=== PATIENT | female | born 2000 | race Caucasian/White ===

== ENCOUNTER 2021-09-23 01:56 | Emergency (ER) | payer SELFPAY ==
[2021-09-23 01:59] VITALS: BP 161/105; PULSE 107; RESP 18; TEMP 36.7; O2SAT 100
[2021-09-23 02:35] VITALS: BP 146/94; PULSE 79; TEMP 36.4; O2SAT 100
--- NOTE | 2021-09-23 04:40 | PC.NURSE ---
pt called to initiate orders in waiting room. No answer.
== END 2021-09-23 03:50 | disposition left against medical advice (07) ==
LOC: ANHED 05:16
DX: Z53.21 Procedure and treatment not carried out due to patient leaving prior to being seen by health care provider (principal)
CPT/HCPCS: 99199

== ENCOUNTER 2021-11-04 13:23 | Emergency (ER) | payer BC, SELFPAY ==
--- NOTE | ~2021-11-04 | CT_ITS ---
EXAMINATION: CT brain wo con DATE: 11/04/2021 14:39 INDICATION: Headache and altered mental status . TECHNIQUE: Computed tomography (CT) of the head was performed without intravenous contrast. The mA wa s adjusted according to patient size. Iterative reconstruction technique was employed. The dose-lengt h product was 605.33 mGy-cm. COMPARISON: None FINDINGS: No acute intracranial hemorrhage or extra-axial fluid collection. No hydrocephalus, mass, or herniation. No acute ischemic infarct. Unremarkable dural venous sinus attenuation. No acute osseous abnormality. The aerated spaces are clear. IMPRESSION: No acute intracranial process. Reviewed, dictated and finalized at location K.
[2021-11-04 13:55] VITALS: BP 153/108; PULSE 93; RESP 20; TEMP 36.7; O2SAT 98
--- NOTE | 2021-11-04 14:24 | ED.GENADULT ---
HPI - General Adult General Chief complaint: Unspecified Stated complaint: wanting to be seen for disorientation Time Seen by Provider: 11/04/21 14:06 History of Present Illness HPI narrative: This is a 21-year-old this is a 21-year-old female with past medical history of anxiety, presenting the emergency department with intermittent feelings of confusion and amnesia. These events are random, lasting several minutes at a time, associated with confusion about ongoing activities around the patient. She also complains of intermittent headaches for the past week as well as intermittent episodes of lightheadedness over the past month. He denies associated weakness, numbness, loss of vision, ringing in the ears or loss of hearing. Review of Systems Review of Systems: CONSTITUTIONAL: Denies fever, chills, or sweats. EYES: Denies visual changes, redness, or discharge. ENT: Denies rhinorrhea, congestion, sore throat, or otalgia. CARDIOVASCULAR: Denies chest pain, palpitations, or edema. RESPIRATORY: Denies cough or dyspnea. GASTROINTESTINAL: Denies abdominal pain, nausea, vomiting, or diarrhea. GENITOURINARY: Denies dysuria or hematuria. SKIN: Denies rash or itching. MUSCULOSKELETAL: Denies back pain, joint pain, or myalgia. NEUROLOGIC: +headache, dizziness, Denies numbness, or weakness. PSYCHIATRIC: Denies anxiety or depression. Exam Narrative: GENERAL: Well-appearing, well-nourished, and in no acute distress. HEAD: Normocephalic, atraumatic. EYES: PERRLA and EOMI. ENT: Nares clear, no rhinorrhea or epistaxis. Mucous membranes moist. Oropharynx without tonsillar hypertrophy exudate or other lesions. NECK: Supple. No adenopathy or masses. No carotid bruits or JVD CHEST: Clear to auscultation. No respiratory distress. No wheezes rales or rhonchi HEART: Regular rate and rhythm. No murmur heard. Normal peripheral pulses. ABDOMEN: Soft, nontender, nondistended, normal active bowel sounds. EXTREMITIES: Normal range of motion. No edema. SKIN: Warm, dry, no rash. NEURO: No focal deficits. Alert and oriented x3. PSYCH: Normal mood and affect. Course Course Emergency Course: CT head unremarkable. CBC, CMP, TSH unremarkable. test negative. Discussed findings with the patient and recommendation for follow-up with her primary care doctor. Discussed return emergency precautions including signs/symptoms of stroke and sepsis. Patient voiced understanding and was comfortable with the plan. All questions answered to her satisfaction. Vital Signs Vital signs: Vital Signs Temperature 98.1 F 11/04/21 13:55 Pulse Rate 93 11/04/21 13:55 Respiratory Rate 20 11/04/21 13:55 Blood Pressure 153/108 H 11/04/21 13:55 Pulse Oximetry 98 11/04/21 13:55 Oxygen Delivery Room Air 11/04/21 13:55 Temperature 98.1 F 11/04/21 13:55 Pulse Rate 93 11/04/21 13:55 Respiratory Rate 20 11/04/21 13:55 Blood Pressure 153/108 H 11/04/21 13:55 Pulse Oximetry 98 11/04/21 13:55 Oxygen Delivery Room Air 11/04/21 13:55 Medical Decision Making MDM Narrative Medical decision making narrative: Plan: Labs, imaging, reassess Differential Diagnosis Differential Diagnosis: Intracranial mass, metabolic abnormality, medication side effect, , other Vital Signs Vital Signs: Vital Signs Temperature 98.1 F 11/04/21 13:55 Pulse Rate 93 11/04/21 13:55 Respiratory Rate 20 11/04/21 13:55 Blood Pressure 153/108 H 11/04/21 13:55 Pulse Oximetry 98 11/04/21 13:55 Oxygen Delivery Room Air 11/04/21 13:55 Temperature 98.1 F 11/04/21 13:55 Pulse Rate 93 11/04/21 13:55 Respiratory Rate 20 11/04/21 13:55 Blood Pressure 153/108 H 11/04/21 13:55 Pulse Oximetry 98 11/04/21 13:55 Oxygen Delivery Room Air 11/04/21 13:55 Lab Data Result diagrams: 11/04/21 16:00 11/04/21 16:00 Labs: Lab Results 11/04/21 11/04/21 Range/Units 16:00 16:00 WBC 10.2 H
[2021-11-04 16:11] LABS: Basophils Percent Auto 0.3 % (0.2-1.2); Eosinophils Absolute Auto 0.1 K/mm3 (0-0.3); Eosinophils Percent Auto 0.6 % (0-4.4); Hematocrit 39.6 % (37.0-47.0); Hemoglobin 12.3 g/dL (12.0-15.0); Immature Granulocyte Absolute 0.05 K/mm3 (0.00-0.031); Immature Granulocyte Percent A 0.5 % (0-0.5); Lymphocytes Absolute Auto 2.94 K/mm3 (0.9-3.2); Lymphocytes Percent Auto 28.7 % (18.3-44.2); Mean Corpuscular HGB Conc 31.1 g/dl (32-36); Mean Corpuscular Hemoglobin 26.5 pg (26-34); Mean Corpuscular Volume 85.2 fl (80-100); Mean Platelet Volume 10.3 fl (7.4-10.4); Monocytes Absolute Auto 0.6 K/mm3 (0.1-0.6); Monocytes Percent Auto 5.8 % (2.6-8.5); Neutrophils Absolute Auto 6.6 K/mm3 (1.3-6.7); Neutrophils Percent Auto 64.1 % (45.5-73.1); Platelet Count Result 292 k/mm3 (150-375); Red Blood Count 4.65 M/mm3 (4.2-5.4); Red Cell Distribution Width 14.6 % (11.5-14.5); White Blood Count 10.2 K/mm3 (4.5-10.0)
[2021-11-04 16:16] LABS: Alanine Aminotransferase 18 U/L (6-35); Albumin Level 4.2 g/dL (3.5-5.1); Alkaline Phosphatase 84 U/L (38-126); Anion Gap 6 mmol/L (8-16); Aspartate Amino Transferase 21 U/L (14-36); Bilirubin,Total 0.4 mg/dL (0.2-1.3); Blood Urea Nitrogen 10 mg/dL (7-17); Carbon Dioxide 27 mmol/L (22-30); Chloride 104 mmol/L (98-107); Estimated CRCL calculation 161 ml/min; Estimated Glomerular Filt Rate > 60; Glucose 100 mg/dL (65-110); Potassium 3.9 mmol/L (3.4-5.0); Sodium 137 mmol/L (137-145)
[2021-11-04 17:35] VITALS: BP 144/97; PULSE 90; RESP 16; O2SAT 95
== END 2021-11-04 17:35 | disposition home or self-care (01) ==
PROVIDERS: Emergency Provider Preventive Medicine Aerospace Medicine
DX: R41.0 Disorientation, unspecified (principal); R03.0 Elevated blood-pressure reading, without diagnosis of hypertension
CPT/HCPCS: 36415; 70450; 80053; 81025; 84443; 85025; 99284

== ENCOUNTER 2022-01-17 18:26 | Emergency (ER) | payer BC, SELFPAY ==
[2022-01-17 18:29] VITALS: BP 142/87; PULSE 78; RESP 14; TEMP 36.6; O2SAT 100
--- NOTE | 2022-01-17 20:38 | ED.GENADULT ---
HPI - General Adult General Chief complaint: Unspecified Stated complaint: body aches Time Seen by Provider: 01/17/22 19:46 History of Present Illness HPI narrative: this is a 21-year-old female presenting ED with 5 days of flu-like symptoms. Symptoms include a sore throat which is resolved, headaches and body aches. The patient has been taking 1000 of Tylenol and 800 mg of Motrin once per day. She says this improves her symptoms then the recur later in the day. She denies fever, chills, nausea, vomiting, diarrhea, chest pain or difficulty breathing. Patient is looking for symptom control Because her symptoms have been going on for over 5 days. Patient's last menstrual period was 2 weeks ago. She denies possibility of . Related Data Allergies Allergy/AdvReac Type Severity Reaction Status Date / Time Sulfa (Sulfonamide Allergy Unknown Verified 01/17/22 19:43 Antibiotics) Review of Systems Review of Systems: CONSTITUTIONAL: Denies night sweats. EYES: No eye pain ENT: Denies rhinorrhea CARDIOVASCULAR: Denies palpitations RESPIRATORY: Denies hemoptysis GASTROINTESTINAL: Denies hematemesis GENITOURINARY: Denies hematuria. SKIN: Denies rash MUSCULOSKELETAL: admitsmyalgia. NEUROLOGIC: Denies weakness. PSYCHIATRIC: Denies delusions [facility] Social History Social History Social History: occasional alcohol use, denies tobacco or drug use. Exam Narrative: APPEARANCE: No apparent distress. Head: atraumatic., ear tube in place in the right ear, left tympanic membrane is normal, no erythema or exudate on the throat. EYES: EOMI, NOSE: Atraumatic NECK: Trachea midline RESPIRATORY: No increased rate of breathing , clear to auscultation bilaterally, normal respiratory rate CARDIOVASCULAR: RRR, ABDOMINAL: Non-distended MUSCULOSKELETAl: No obvious deformities NEURO: Alert. Moving 4/4 extremities SKIN:: Warm, dry. Normal color PSYCHIATRIC: Normal affect Course Vital Signs Vital signs: Vital Signs Temperature 97.8 F 01/17/22 18:29 Pulse Rate 78 01/17/22 18:29 Respiratory Rate 14 01/17/22 18:29 Blood Pressure 142/87 H 01/17/22 18:29 Pulse Oximetry 100 01/17/22 18:29 Oxygen Delivery Room Air 01/17/22 18:29 Temperature 97.8 F 01/17/22 18:29 Pulse Rate 78 01/17/22 18:29 Respiratory Rate 14 01/17/22 18:29 Blood Pressure 142/87 H 01/17/22 18:29 Pulse Oximetry 100 01/17/22 18:29 Oxygen Delivery Room Air 01/17/22 18:29 Medical Decision Making MDM Narrative Medical decision making narrative: this is a 21-year-old female presenting with flu-like symptoms. She is well-appearing with stable vital signs. Her physical exam is unremarkable. I did discuss proper timing of her dosing Motrin Tylenol for symptom control. She was tested for COVID and flu which were negative. Patient be discharged home with primary care follow-up. Vital Signs Vital Signs: Vital Signs Temperature 97.8 F 01/17/22 18:29 Pulse Rate 78 01/17/22 18:29 Respiratory Rate 14 01/17/22 18:29 Blood Pressure 142/87 H 01/17/22 18:29 Pulse Oximetry 100 01/17/22 18:29 Oxygen Delivery Room Air 01/17/22 18:29 Temperature 97.8 F 01/17/22 18:29 Pulse Rate 78 01/17/22 18:29 Respiratory Rate 14 01/17/22 18:29 Blood Pressure 142/87 H 01/17/22 18:29 Pulse Oximetry 100 01/17/22 18:29 Oxygen Delivery Room Air 01/17/22 18:29 Lab Data Labs: Lab Results 01/17/22 Range/Units 19:57 Influenza A (RT-PCR) Pending Influenza B (RT-PCR) Pending SARS-CoV-2 RNA (RT-PCR) Pending Discharge Plan Discharge Clinical Impression: Acute viral syndrome Patient Disposition: Home, Self-Care Condition: Stable Instructions: Antibiotic Form, Viral Syndrome (ED) Additional Instructions: please take Motrin and Tylenol every 8 hours for symptom control. Please return emergency department if
[2022-01-17 20:46] LABS: Influenza A QL RT-PCR Negative (Negative); Influenza B QL RT-PCR Negative (Negative); SARS-CoV-2 RNA PCR Negative
[2022-01-17] MEDS: ACETAMINOPHEN 500 MG TABLET 1000 MG PO (20:47)
[2022-01-17] MEDS: IBUPROFEN 400 MG TABLET 800 MG PO (20:47)
[2022-01-17 21:06] VITALS: BP 144/89; PULSE 67; RESP 16; TEMP 36.9; O2SAT 100
== END 2022-01-17 21:06 | disposition home or self-care (01) ==
PROVIDERS: Emergency Provider Emergency Medicine
DX: B34.9 Viral infection, unspecified (principal); Z20.822 Contact with and (suspected) exposure to COVID-19
CPT/HCPCS: 87502; 99283; A9270; U0003; U0005